=== PATIENT | male | born 1990 | race African-American/Black ===

== ENCOUNTER 2021-06-02 22:54 | Emergency (ER) | payer OTHER, BC ==
[2021-06-02] MEDS ORDERED: Acetaminophen 500 MG TAB ONE (23:38)
== END 2021-06-03 00:06 | disposition home or self-care (01) ==
LOC: CSHERS 22:54
DX: S20.212A Contusion of left front wall of thorax, initial encounter (principal); S40.022A Contusion of left upper arm, initial encounter; V43.52XA Car driver injured in collision with other type car in traffic accident, initial encounter
CPT/HCPCS: 71045

== ENCOUNTER 2021-09-07 07:01 | Emergency (ER) | payer BC, SELFPAY | END 2021-09-07 08:00 | disposition home or self-care (01) | LOC: CSHERS 07:01 | DX: R19.7 Diarrhea, unspecified (principal) | CPT/HCPCS: 99283 ==

== ENCOUNTER 2021-10-10 22:27 | Emergency (ER) | payer SELFPAY ==
[2021-10-10] MEDS ORDERED: Dicyclomine 20 MG/2 ML VIAL ONE (23:12)
== END 2021-10-10 23:21 | disposition home or self-care (01) ==
LOC: CSHERS 22:27
DX: R10.10 Upper abdominal pain, unspecified (principal); R07.89 Other chest pain; R00.1 Bradycardia, unspecified
CPT/HCPCS: 93005; J0500

== ENCOUNTER 2021-12-14 04:31 | Emergency (ER) | payer SELFPAY ==
[2021-12-14] MEDS ORDERED: Tetracaine 0.5% PF 4 ML BOT ONE (05:09)
[2021-12-14] MEDS ORDERED: Fluorescein Opthalmic Strip ONE (05:10)
== END 2021-12-14 05:32 | disposition home or self-care (01) ==
LOC: CSHERS 04:31
DX: H57.12 Ocular pain, left eye (principal); Z79.899 Other long term (current) drug therapy
CPT/HCPCS: 99283

== ENCOUNTER 2022-01-14 02:00 | Emergency (ER) | payer BC, SELFPAY ==
[2022-01-14 02:39] LABS: Hemoglobin 13.1 g/dL (13.5-17.5); Mean Corpuscular HGB CONC 35.4 g/dL (32.0-36.0); Mean Corpuscular Hemoglobin 31.6 pg (27.0-33.0); Mean Corpuscular Volume 89.4 fl (81.2-95.1); Mean Platelet Volume 9.5 fl (7.4-10.4); Platelet Count 200 10x3/uL (150-450); RBC Distribution Width 12.6 % (11.5-14.5); Red Blood Cell (RBC) Count 4.14 10x6/uL (4.32-5.72)
[2022-01-14 02:40] LABS: MDiff Complete? YES
[2022-01-14 02:51] LABS: ALT (SGPT) 19 U/L (8-55); AST (SGOT) 21 U/L (5-34); Albumin 3.8 g/dL (3.5-5.0); Alkaline Phosphatase 89 U/L (40-110); Anion Gap 11 mmol/L (10-20); BUN (Urea Nitrogen) 12 mg/dL (8.9-20.6); Bilirubin, Total 0.4 mg/dL (0.2-1.2); CK (CPK) 316 U/L (30-200); Calc. Creatinine Clearance 0 mL/min (70-130); Calcium 8.6 mg/dL (7.8-10.44); Carbon Dioxide 26 mmol/L (22-29); Chloride 106 mmol/L (98-107); Estimated GFR 120; Glucose 101 mg/dL (70-105); Potassium 3.4 mmol/L (3.5-5.1); Protein, Total 6.8 g/dL (6.0-8.3); Sodium 140 mmol/L (136-145)
[2022-01-14 03:02] LABS: Eosinophils 3 % (0-10); Lymphocytes 45 % (21-51); Monocytes 12 % (0-10); Neutrophil 37 % (42-75); Reactive Lymphocytes 3 % (0-10)
[2022-01-14 03:04] LABS: Platelet Morphology Comment Appears Adequate; RBC Morphology Normal
== END 2022-01-14 03:33 | disposition home or self-care (01) ==
LOC: CSHERS 02:00
DX: R07.89 Other chest pain (principal)
CPT/HCPCS: 36415; 71045; 80053; 82550; 84484; 85025; 93005

== ENCOUNTER 2023-03-11 19:56 | Emergency (ER) | payer SELFPAY ==
[2023-03-11 20:58] LABS: SARS-CoV-2 NAA Rapid Test Not Detected (NotDetected)
== END 2023-03-11 21:17 | disposition home or self-care (01) ==
LOC: CSHERS 19:56
DX: J10.1 Influenza due to other identified influenza virus with other respiratory manifestations (principal); Z20.822 Contact with and (suspected) exposure to COVID-19
CPT/HCPCS: 99283